=== PATIENT | female | born 1985 | race Caucasian/White ===

== ENCOUNTER 2019-04-02 18:07 | Observation (INO) ==
[2019-04-02] MEDS ORDERED: Ondansetron 4 MG/2 ML VIAL IVP STA (19:00)
[2019-04-02] MEDS ORDERED: 0.9 % Sodium Chloride 1,000 ML IVC ONE (19:02)
[2019-04-02] MEDS ORDERED: *HR* FentaNYL (PF) 100 MCG/2 ML VIAL IVP ONE (19:02)
[2019-04-02] MEDS ORDERED: GI Cocktail 40 ML EACH PO ONE (19:14)
[2019-04-02 20:10] LABS: Basophils % 0.4 %; Eosinophils # 0.1 K/mcL (0.0-0.6); Eosinophils % 1.1 %; Hematocrit 38.2 % (35.3-44.9); Hemoglobin 12.9 g/dL (11.5-15.4); Immature Granulocytes % 0.2 % (0-4); Lymphocytes # 1.1 K/mcL (0.6-4.6); Lymphocytes % 19.3 %; Mean Corpuscular HGB Conc 33.8 g/dL (31.6-35.5); Mean Corpuscular Hemoglobin 31.9 pg (28.0-33.3); Mean Corpuscular Volume 94.6 fL (83.0-100.0); Monocytes # 0.5 K/mcL (0.0-1.3); Monocytes % 9.6 %; Neutrophils # 3.9 K/mcL (1.6-8.9); Platelet Count 207 K/mcL (140-400); Red Blood Count 4.04 M/mcL (3.82-4.97); Red Cell Distribution Width 11.6 % (11.5-14.5); Segmented Neutrophils % 69.4 %; White Blood Count 5.7 K/mcL (4.3-11.1)
[2019-04-02 20:12] LABS: Bilirubin,Urine Negative (Negative); Blood,Urine Small (Negative); Clarity,Urine Cloudy (Clear); Color,Urine Dark Yellow (Yellow); Glucose,Urine (UA) Normal (Normal); Ketones,Urine Negative (Negative); Leukocyte Esterase,Urine Negative (Negative); Nitrite,Urine Negative (Negative); Protein,Urine Negative (Neg-Trace); Specific Gravity,Urine 1.025 (1.010-1.025); Urobilinogen,Urine Normal (Normal)
[2019-04-02 20:14] LABS: Bacteria,Urine Moderate per hpf (None-Few); Hyaline Casts,Urine Few per lpf (None-Few); RBC,Urine 0-3 per hpf (0-3); Squamous Epithelial Cell,Urine Many per lpf (None-Few); WBC,Urine 0-3 per hpf (0-3)
[2019-04-02 20:29] LABS: Alanine Aminotransferase 146 Units/L (7-52); Albumin 4.2 g/dL (3.5-5.7); Albumin/Globulin Ratio 1.2 (1.1-2.2); Alkaline Phosphatase 106 Units/L (34-104); Aspartate Amino Transferase 78 Units/L (13-39); BUN/Creatinine Ratio 11 (6-26); Bilirubin,Direct 0.2 mg/dL (0.0-0.2); Bilirubin,Indirect 0.3 mg/dL (0.0-1.0); Bilirubin,Total 0.5 mg/dL (0.3-1.0); Blood Urea Nitrogen 7 mg/dL (6-20); Calcium 9.5 mg/dL (8.6-10.3); Carbon Dioxide 28 mEq/L (23-29); Chloride 101 mEq/L (98-107); Globulin 3.6 g/dL (2.4-3.5); Glucose 101 mg/dL (70-105); Lipase 15 Units/L (11-82); Osmolality,Calculated 278 (280-300); Potassium 3.3 mEq/L (3.5-5.1); Sodium 135 mEq/L (136-145); Total Protein 7.8 g/dL (6.4-8.9); eGFR For African Americans > 60 (> 60); eGFR For Non-African Americans > 60 (> 60)
[2019-04-02 20:30] LABS: Mucus,Urine Moderate (Few)
[2019-04-02 21:23] LABS: Hepatitis B Surface Antigen Nonreactive (Nonreactive)
[2019-04-02] MEDS ORDERED: *HR* HYDROmorphone (PF) 1 MG/ML SYRINGE IVP ONE (21:31)
[2019-04-02 21:52] LABS: Hepatitis B Core IgM Nonreactive (Nonreactive)
[2019-04-02 21:53] LABS: Hepatitis A Antibody IgM Nonreactive (Nonreactive)
[2019-04-02] MEDS ORDERED: cefOXitin 1,000 MG in 0.9 % Sodium Chloride Mini Bag 100 ML IVPB ONE (23:00)
[2019-04-02] MEDS: Ondansetron 4 MG/2 ML VIAL IVP PRN (23:21)
[2019-04-02] MEDS: 0.9 % Sodium Chloride 1,000 ML IVC SCH (23:21)
[2019-04-02 23:51] LABS: Hepatitis C Virus Antibody Reactive (Nonreactive)
[2019-04-03] MEDS ORDERED: Piperacillin/Tazobactam 3.375 GM in 0.9 % Sodium Chloride Mini Bag 100 ML IVPB SCH
[2019-04-03] MEDS: Morphine Sulfate 2 MG/ML SYRINGE IVP PRN ×2 (03:28→08:01)
[2019-04-03] MEDS ORDERED: SODIUM CHLORIDE MINI 0.9% IVPB SCH (08:00)
[2019-04-03] MEDS ORDERED: CEFOXITIN IVPB SCH (08:00)
[2019-04-03] MEDS ORDERED: Pantoprazole 40 MG VIAL IVP SCH (09:00)
[2019-04-03] MEDS: 0.9 % Sodium Chloride 1,000 ML IVC SCH ×2 (09:16→17:45)
[2019-04-03] MEDS: Ondansetron 4 MG/2 ML VIAL IVP PRN (09:34)
[2019-04-03] MEDS ORDERED: *HR* Midazolam HCl 2 MG/2 ML VIAL ONE (10:56)
[2019-04-03] MEDS ORDERED: *HR* Rocuronium Bromide 50 MG/5 ML VIAL ONE (10:56)
[2019-04-03] MEDS ORDERED: *HR* FentaNYL (PF) 100 MCG/2 ML VIAL ONE (10:57)
[2019-04-03] MEDS ORDERED: Lidocaine -MPF 2% 2 ML VIAL ONE (10:57)
[2019-04-03] MEDS ORDERED: *HR* Propofol 200 MG/20 ML VIAL IVP ONE (10:58)
[2019-04-03] MEDS ORDERED: Dexamethasone 4 MG/ML VIAL ONE ×3 (10:59→12:35)
[2019-04-03] MEDS ORDERED: Ondansetron 4 MG/2 ML VIAL ONE (10:59)
[2019-04-03] MEDS ORDERED: Lidocaine HCL 4 ML Topical Solution (Laryng-O-Jet Kit Sterile Pak) TP ONE (11:02)
[2019-04-03] MEDS ORDERED: Acetaminophen IV 0 MG/0 ML INFUS..BTL ONE (11:55)
[2019-04-03] MEDS ORDERED: Ketorolac 30 MG/ML VIAL ONE (12:05)
[2019-04-03] MEDS ORDERED: Albuterol 2.5 MG/3 ML NEBULIZER IH ONE (12:21)
[2019-04-03] MEDS ORDERED: Dexmedetomidine HCl 400 MCG/100 ML MLS IVC ONE (12:25)
[2019-04-03] MEDS ORDERED: Isovue-300 50ML VIAL ONE (12:26)
[2019-04-03] MEDS ORDERED: *HR* Promethazine 25 MG/ML VIAL IVP PRN (12:28)
[2019-04-03] MEDS ORDERED: *HR* OxyCODONE Immed Rel 5 MG TABLET PO PRN (12:28)
[2019-04-03] MEDS ORDERED: *HR* HYDROmorphone (PF) 1 MG/ML SYRINGE IVP PRN (12:28)
[2019-04-03] MEDS ORDERED: Ondansetron 4 MG/2 ML VIAL IVP ONE (12:28)
[2019-04-03] MEDS ORDERED: *HR* Meperidine 25 MG/ML SYRINGE IVP PRN (12:28)
[2019-04-03] MEDS ORDERED: Ipratropium/Albuterol Neb 3 ML ONE (12:31)
[2019-04-03] MEDS ORDERED: *HR* Magnesium Sulfate 1 GM/2 ML VIAL ONE (12:34)
[2019-04-03] MEDS ORDERED: *HR* HYDROMORPHONE 2 MG/ML VIAL ONE (13:36)
[2019-04-03] MEDS ORDERED: *HR* PHENYLEPHRINE 1,000 MCG/10 ML SYRINGE IVP ONE (13:39)
[2019-04-03] MEDS ORDERED: Neostigmine Methylsulfate 3 MG/3 ML SYRINGE ONE ×2 (14:18→15:03)
[2019-04-03] MEDS ORDERED: Ringers Solution, Lactated 1,000 ML ONE (15:42)
[2019-04-03] MEDS ORDERED: Ondansetron 4 MG/2 ML VIAL IVP PRN (16:24)
[2019-04-03] MEDS: Ketorolac 15 MG/ML VIAL IVP SCH (17:45)
[2019-04-04] MEDS: Ketorolac 15 MG/ML VIAL IVP SCH ×3 (00:07→11:16)
[2019-04-04] MEDS: 0.9 % Sodium Chloride 1,000 ML IVC SCH (03:09)
[2019-04-04] MEDS: Acetaminophen IV 1,000 MG/100 ML INFUS..BTL IVPB SCH ×2 (05:07→10:12)
[2019-04-04] MEDS ORDERED: Pantoprazole 40 MG VIAL IVP SCH (07:30)
[2019-04-04] MEDS: Morphine Sulfate 2 MG/ML SYRINGE IVP PRN ×2 (09:02→09:06)
[2019-04-04 10:35] VITALS: BP 105/70
[2019-04-04] MEDS ORDERED: SODIUM CHLORIDE MINI 0.9% IVPB SCH (17:00)
[2019-04-04] MEDS ORDERED: CEFOXITIN IVPB SCH (17:00)
[2019-04-06 15:12] LABS: HCV Quant Interpretation DETECTED (Not Detected); HCV Quant Log 5.44 log IU/mL
[2019-04-10 11:16] LABS: HCV Genotype by Sequencing 3A
== END 2019-04-04 13:15 | disposition home or self-care (01) ==
LOC: 3ANU 18:07 → EMEROOARM 18:07 → 3ANU 21:52
PROVIDERS: ADMIT Surgery; ATTEND Surgery